=== PATIENT | male | born 1980 | race Caucasian/White ===

== ENCOUNTER 2020-08-03 18:20 | Emergency (ER) | payer OTHER ==
--- NOTE | 2020-08-03 19:02 | ED ---
SOB HPI - General Chief Complaint: Shortness of Breath Stated Complaint: Fever,SOB,Cough Time Seen by Provider: 08/03/20 18:22 Source: patient Mode of arrival: ambulatory Limitations: no limitations - History of Present Illness Initial Comments: Gilberto Torrez is a 39-year-old male presents the emergency department today for evaluation of persistent fevers, chills cough and shortness of breath in the setting of having COVID-19. Patient began symptomatic on Thursday and tested positive on that day. Despite taking Tylenol and Motrin patient has persistent fevers and cough. Presenting to the ER today for reevaluation and possible monoclonal antibody infusion. - Related Data Allergies Allergy/AdvReac Type Severity Reaction Status Date / Time No Known Allergies Allergy Verified 08/03/20 18:30 Review of Systems ROS Statement: Those systems with pertinent positive or pertinent negative responses have been documented in the HPI. ROS Other: All systems not noted in ROS Statement are negative. Past Medical History Past Medical History: No Reported History History of Any Multi-Drug Resistant Organisms: None Reported Additional Past Surgical History / Comment(s): septum Past Psychological History: No Psychological Hx Reported Smoking Status: Never smoker Past Alcohol Use History: None Reported Past Drug Use History: None Reported General Exam - General Exam Comments Initial Comments: Physical Exam GENERAL: Patient is well-developed and well-nourished. Patient is nontoxic and well-hydrated and is in no distress. HENT: Normocephalic, Atraumatic. EYES: PERRL, EOMI PULMONARY: Unlabored respirations. CARDIOVASCULAR: RRR Warm and well perfused extremities ABDOMEN: Non-distended SKIN: No rashes or bruising : Deferred NEUROLOGIC: Alert and oriented Normal speech Normal gait MUSCULOSKELETAL: Moving all extremities with no apparent injury PSYCHIATRIC: No SI/HI Limitations: no limitations Course Vital Signs 08/03/20 08/03/20 08/03/20 18:27 19:40 20:15 Temperature 99.7 F H 103 F H 100 F H Pulse Rate 87 94 95 Respiratory 18 18 20 Rate Blood Pressure 136/73 112/67 110/70 O2 Sat by Pulse 98 98 98 Oximetry 08/03/20 08/03/20 20:32 21:26 Temperature 100 F H 101 F H Pulse Rate 90 90 Respiratory 18 20 Rate Blood Pressure 117/70 101/71 O2 Sat by Pulse 98 97 Oximetry Medical Decision Making - Medical Decision Making Patient seen and evaluated history is obtained from the patient Monoclonal antibody infusion was ordered patient meets criteria with a BMI of 35 and positive COVID test 6 days prior Patient was retested per protocol Monoclonal antibody therapy was ordered Patient developed a fever while in the emergency department was treated with Tylenol and 1 L IV fluid + patient tolerated infusion without reaction Patient will be discharged home with close follow-up - Lab Data Lab Results 08/03/20 Range/Units Unknown Coronavirus (PCR) Detected A (Not Detectd) Disposition Clinical Impression: COVID-19 Disposition: HOME SELF-CARE Condition: Stable Additional Instructions: Continue to take Vitamin c, D3 and Zinc Continue Decadron Continue to alternate tylenol/motrin every 3h for fever Stay hydrated Call me if you need anything Is patient prescribed a controlled substance at d/c from ED?: No Referrals: None,Stated [Primary Care Provider] - 1-2 days
[2020-08-03] MEDS ORDERED: BAMLANIVIMAB (EUA) 700 MG, ETESEVIMAB (EUA) 1,400 MG in SODIUM CHLORIDE 0.9% 50 ML IVPB ONE (19:30)
--- NOTE | 2020-08-03 19:33 | XR ---
EXAMINATION TYPE: XR chest 1V portable DATE OF EXAM: 08/03/2020 COMPARISON: NONE HISTORY: Short of breath TECHNIQUE: FINDINGS: The heart and mediastinum are normal. Lungs are clear. Diaphragm is normal. Bony thorax is intact. IMPRESSION: Normal chest.
[2020-08-03] MEDS ORDERED: SODIUM CHLORIDE 0.9% 50 ML IVPB ONE (20:00)
[2020-08-03] MEDS ORDERED: ACETAMINOPHEN TAB 500 MG TAB PO STA (20:08)
[2020-08-03] MEDS ORDERED: SODIUM CHLORIDE 0.9% 1,000 ML IV ONE (20:22)
[2020-08-03 20:34] VITALS: PULSE 90
[2020-08-03 21:32] VITALS: BP 101/71; RESP 20; TEMP 101
== END 2020-08-03 21:31 | disposition home or self-care (01) ==
LOC: EC 18:20
DX: U07.1 COVID-19 (principal)
CPT/HCPCS: 87635; 71045; 99285; 96360; Q0245